=== PATIENT | male | born 1945 | race Caucasian/White ===

== ENCOUNTER 2016-08-06 03:51 | Emergency (ER) | payer MEDICARE, SELFPAY ==
[~2016-08-06 03:51] MED LIST: COZAAR50 MG PO; FLAGYL500 MG PO; JANUMET XR 50-1 EACH PO; LEVAQUIN500 MG PO; LEVEMIR FL100 UNIT/1 SC; LISINOPRIL10 MG PO; NICODERM 21MG PA1 EA TD; REQUIP1 MG PO
[2016-08-06 04:41] LABS: BASO % 0.4 % (0.2-1.2); EOS # 0.6 10_X3_uL (0.0-0.5); EOS % 5.5 % (0.8-7.0); GRAN # 6.4 10_X3_uL (1.8-5.4); GRAN % 61.5 % (34.0-67.9); HEMATOCRIT 35.3 % (40-51); HEMOGLOBIN 11.6 g/dL (13.7-17.5); LYMPH # 2.6 10_X3_uL (1.3-3.6); LYMPH % 25.3 % (21.8-53.1); MEAN CORPUSCULAR HEMOGLOBIN 29.1 pg (27.0-33.0); MEAN CORPUSCULAR HGB CONC 32.9 g/dL (32.0-36.0); MEAN CORPUSCULAR VOLUME 88.5 fL (79-92); MEAN PLATELET VOLUME 10.6 fl (7.5-11.5); MONO # 0.8 10_X3_uL (0.3-0.8); MONO % 7.3 % (5.3-12.2); PLATELET COUNT 215 x10_3/uL (163-337); RED BLOOD COUNT 3.99 x10_6/uL (4.6-6.1); WHITE BLOOD COUNT 10.4 x10_3/uL (4.2-9.1)
[2016-08-06 04:53] LABS: CALCIUM 8.5 mg/dL (8.7-10.7); CARBON DIOXIDE 24 mmol/L (21-32); CREATININE 0.5 mg/dL (0.6-1.3); GLUCOSE,RANDOM 168 mg/dL (70-99); POTASSIUM 4.1 mmol/L (3.5-5.1); SODIUM 138 mmol/L (136-145)
[2016-08-06 04:54] LABS: BLOOD UREA NITROGEN 20 mg/dL (7-18)
== END 2016-08-06 05:50 | disposition home or self-care (01) ==
LOC: ER 03:51
PROVIDERS: General Practice
DX: G47.33 Obstructive sleep apnea (adult) (pediatric) (principal); G47.00 Insomnia, unspecified; R60.9 Edema, unspecified; I73.9 Peripheral vascular disease, unspecified; J44.9 Chronic obstructive pulmonary disease, unspecified; I10 Essential (primary) hypertension; E11.9 Type 2 diabetes mellitus without complications; E66.01 Morbid (severe) obesity due to excess calories; M54.9 Dorsalgia, unspecified; G89.29 Other chronic pain
CPT/HCPCS: 36415; 71010; 80048; 83880; 85025; 93005; 99284; 99285-25

== ENCOUNTER 2016-08-14 03:50 | Emergency (ER) | payer MEDICARE, SELFPAY | END 2016-08-14 04:43 | disposition home or self-care (01) | LOC: ER 03:50 | DX: M54.5 Low back pain (principal); I10 Essential (primary) hypertension; E11.9 Type 2 diabetes mellitus without complications; K60.3 Anal fistula | CPT/HCPCS: 96372; 99282-25; 99283 ==

== ENCOUNTER 2016-08-19 04:45 | Emergency (ER) | payer MEDICARE, SELFPAY | END 2016-08-19 05:50 | disposition home or self-care (01) | LOC: ER 04:45 | DX: M54.5 Low back pain (principal); G89.29 Other chronic pain; Z88.8 Allergy status to other drugs, medicaments and biological substances; Z79.899 Other long term (current) drug therapy; Z79.4 Long term (current) use of insulin ==

== ENCOUNTER 2016-08-20 10:49 | Emergency (ER) | payer MEDICARE, SELFPAY | END 2016-08-20 12:59 | disposition home or self-care (01) | LOC: ER 10:49 | DX: R21 Rash and other nonspecific skin eruption (principal); L08.9 Local infection of the skin and subcutaneous tissue, unspecified; E11.9 Type 2 diabetes mellitus without complications; I10 Essential (primary) hypertension; Z88.8 Allergy status to other drugs, medicaments and biological substances ==

== ENCOUNTER 2016-09-16 03:26 | Emergency (ER) | payer MEDICARE, OTHER | END 2016-09-16 05:30 | disposition home or self-care (01) | LOC: ER 03:26 | DX: S40.011A Contusion of right shoulder, initial encounter (principal); W01.0XXA Fall on same level from slipping, tripping and stumbling without subsequent striking against object, initial encounter; Y92.019 Unspecified place in single-family (private) house as the place of occurrence of the external cause; E11.9 Type 2 diabetes mellitus without complications; I10 Essential (primary) hypertension; Z79.899 Other long term (current) drug therapy; Z79.4 Long term (current) use of insulin | CPT/HCPCS: 73030; 73060; 96372; 99283; 99283-25 ==

== ENCOUNTER 2016-10-07 02:04 | Emergency (ER) | payer MEDICARE, SELFPAY ==
[2016-10-07 08:36] LABS: BASO # 0.1 10_X3_uL (0.0-0.1); BASO % 0.4 % (0.2-1.2); EOS # 0.6 10_X3_uL (0.0-0.5); EOS % 4.9 % (0.8-7.0); GRAN # 7.8 10_X3_uL (1.8-5.4); GRAN % 65.5 % (34.0-67.9); HEMATOCRIT 34.8 % (40-51); HEMOGLOBIN 11.2 g/dL (13.7-17.5); LYMPH # 2.6 10_X3_uL (1.3-3.6); LYMPH % 21.5 % (21.8-53.1); MEAN CORPUSCULAR HEMOGLOBIN 28.7 pg (27.0-33.0); MEAN CORPUSCULAR HGB CONC 32.2 g/dL (32.0-36.0); MEAN CORPUSCULAR VOLUME 89.2 fL (79-92); MEAN PLATELET VOLUME 10.2 fl (7.5-11.5); MONO # 0.9 10_X3_uL (0.3-0.8); MONO % 7.7 % (5.3-12.2); PLATELET COUNT 275 x10_3/uL (163-337); RED CELL DISTRIBUTION WIDTH 14.7 % (11.6-14.4)
[2016-10-07 11:18] LABS: ALBUMIN 3.3 gm/dL (3.4-5.0); ALKALINE PHOSPHATASE 72 U/L (50-136); ALT/SGPT 20 U/L (7.53-40.17); AST/SGOT 19 U/L (6.66-35.34); BLOOD UREA NITROGEN 15 mg/dL (7-18); CALCIUM 8.6 mg/dL (8.7-10.7); CARBON DIOXIDE 24 mmol/L (21-32); CREATININE < 0.5 mg/dL (0.6-1.3); GLUCOSE,RANDOM 149 mg/dL (70-99); POTASSIUM 4.1 mmol/L (3.5-5.1); SODIUM 139 mmol/L (136-145)
== END 2016-10-07 08:47 | disposition short-term general hospital (02) ==
LOC: ER 02:04
PROVIDERS: Emergency Medicine
DX: S82.091A Other fracture of right patella, initial encounter for closed fracture (principal); W19.XXXA Unspecified fall, initial encounter; Y92.009 Unspecified place in unspecified non-institutional (private) residence as the place of occurrence of the external cause; E11.9 Type 2 diabetes mellitus without complications; Z79.899 Other long term (current) drug therapy; Z79.891 Long term (current) use of opiate analgesic; Z79.4 Long term (current) use of insulin
CPT/HCPCS: 36415; 73564; 73700; 80053; 85025; 96372; 99070; 99283-25; 99284